=== PATIENT | male | born 1980 | race Caucasian/White ===

== ENCOUNTER 2018-03-08 20:27 | Emergency (ER) | payer BC ==
[2018-03-08] MEDS ORDERED: CEFTRIAXONE/SWI 1gm 1 GM/10 ML SYR ONE ×2 (21:02→21:50)
[2018-03-08] MEDS ORDERED: AZITHROMYCIN 500 MG/250 ML BAG ONE (21:02)
[2018-03-08] MEDS ORDERED: NA CHLORIDE 0.9% 2,000 ML ONE (21:02)
[2018-03-08 21:20] LABS: Absolute Lymphocytes (CBC) 1.1 K/uL (0.7-4.9); Absolute Monocytes 0.7 K/uL (0.1-1.3); Absolute Neutrophil 6.2 K/uL (1.8-8.0); Basophils % 0.3 % (0-1.3); Eosinophils % 2.1 % (0-4.4); Hematocrit 47.3 % (39.6-49.0); Lymphocytes % 12.9 % (15.3-44.8); MPV 8.7 fL (7.6-11.3); Monocytes % 8.4 % (3.3-12.3); RBC Red Blood Cell Count 5.15 M/uL (4.33-5.43)
[2018-03-08 21:21] LABS: Protime INR 1.25
[2018-03-08 21:31] LABS: ALT/SGPT 118 U/L (12-78); AST/SGOT 60 U/L (15-37); Albumin 3.3 g/dL (3.4-5.0); Alkaline Phosphatase 105 U/L (45-117); BUN Blood Urea Nitrogen 16 mg/dL (7-18); Bicarbonate 25 mmol/L (21-32); Bilirubin Direct 0.2 mg/dL (0-0.2); Bilirubin Total 0.6 mg/dL (0.2-1.0); Glucose Level 127 mg/dL (74-106); Lipase 115 U/L (73-393); NT PRO-BNP 26 pg/mL (<125); Potassium 3.6 mmol/L (3.5-5.1); Protein, Total 7.6 g/dL (6.4-8.2); Sodium Level 136 mmol/L (136-145); Troponin (Emerg Dept Use Only) < 0.02 ng/mL (0.0-0.045)
--- NOTE | 2018-03-08 21:40 | RAD REPORT ---
EXAM DESCRIPTION: RAD - Chest Pa And Lat (2 Views) - 03/08/2018 9:26 pm CLINICAL HISTORY: COUGH Chest pain. COMPARISON: No comparisons FINDINGS: Left parahilar lung opacities are present suspicious for pneumonia. The lungs are otherwis e clear. The heart is normal in size. No displaced fractures. IMPRESSION: Left parahilar pneumonia.
[2018-03-08 21:52] LABS: Urine Blood NEGATIVE (NEG); Urine Glucose NEGATIVE (NEG); Urine Protein 2+ (NEG)
--- NOTE | 2018-03-08 21:57 | EDPHYS ---
Physician Documentation [facility] Name: Jabier Schmidt Age: 37 yrs Sex: Male : 1980 Arrival Date: 03/08/2018 Time: 20:29 Bed 5 Private MD: Juan Antonio Harris T ED Physician Hiram Araujo HPI: 03/08 20:44 This 37 yrs old Male presents to ER via Ambulatory with complaints of Flu hermelinda Symptoms. 20:44 fever , malaise. The patient or guardian reports cough. Onset: The symptoms/episode hermelinda began/occurred 3 day(s) ago. Severity of symptoms: At their worst the symptoms were mild, in the emergency department the symptoms are unchanged. Onset: The symptoms/episode began/occurred just prior to arrival. Modifying factors: The symptoms are alleviated by nothing, the symptoms are aggravated by nothing. The patient reports fever, that was measured at 102 degrees Fahrenheit. Modifying factors: there are no obvious modifying factors. Historical: - Allergies: 20:34 Sulfa (Sulfonamide Antibiotics); aj 20:34 Bactrim; aj 20:34 IV contrast; aj - Home Meds: 20:34 Tamiflu Oral [Active]; Virtussin AC 10-100 mg/5 mL oral liqd 10 mL every 4 hours aj [Active]; Cefuroxime Oral [Active]; Lipitor Oral [Active]; - PMHx: 21:13 High Cholesterol; ak1 - PSHx: 21:13 Vasectomy; ak1 - Immunization history:: Adult Immunizations unknown. - Social history:: Smoking status: Patient/guardian denies using tobacco. - Ebola Screening: : Patient negative for fever greater than or equal to 101.5 degrees Fahrenheit, and additional compatible Ebola Virus Disease symptoms Patient denies exposure to infectious person Patient denies travel to an Ebola-affected area in the 21 days before illness onset No symptoms or risks identified at this time. - Family history:: not pertinent. ROS: 20:44 Eyes: Negative for injury, pain, redness, and discharge, ENT: Negative for injury, hermelinda pain, and discharge, Neck: Negative for injury, pain, and swelling, Cardiovascular: Negative for chest pain, palpitations, and edema, Abdomen/GI: Negative for abdominal pain, nausea, vomiting, diarrhea, and constipation, Back: Negative for injury and pain, : Negative for injury, bleeding, discharge, and swelling, MS/Extremity: Negative for injury and deformity, Skin: Negative for injury, rash, and discoloration, Neuro: Negative for headache, weakness, numbness, tingling, and seizure, Psych: Negative for depression, anxiety, suicide ideation, homicidal ideation, and hallucinations, Allergy/Immunology: Negative for hives, rash, and allergies, Endocrine: Negative for neck swelling, polydipsia, polyuria, polyphagia, and marked weight changes, Hematologic/Lymphatic: Negative for swollen nodes, abnormal bleeding, and unusual bruising. 20:44 Constitutional: Positive for fever, malaise. 20:44 Respiratory: Positive for cough. Exam: 20:44 Head/Face: Normocephalic, atraumatic. Eyes: Pupils equal round and reactive to light, hermelinda extra-ocular motions intact. Lids and lashes normal. Conjunctiva and sclera are non-icteric and not injected. Cornea within normal limits. Periorbital areas with no swelling, redness, or edema. ENT: Nares patent. No nasal discharge, no septal abnormalities noted. Tympanic membranes are normal and external auditory canals are clear. Oropharynx with no redness, swelling, or masses, exudates, or evidence of obstruction, uvula midline. Mucous membranes moist. Neck: Trachea midline, no thyromegaly or masses palpated, and no cervical lymphadenopathy. Supple, full range of motion without nuchal rigidity, or vertebral point tenderness. No Meningismus. Chest/axilla: Normal chest wall appearance and motion. Nontender with no deformity. No lesions are appreciated. Abdomen/GI: Soft, non-tender, with normal bowel sounds. No distension or tympany. No guarding or rebound. No evidence of tenderness throughout. Back: No spinal tenderness. No costovertebral tenderness. Full range of motion. Male : Normal genitalia with no discharge or lesions. Skin: Warm, dry with normal turgor. Normal color with no rashes, no lesions, and no evidence of cellulitis. MS/ Extremity: Pulses equal, no cyanosis. Neurovascular intact. Full, normal range of motion. Neuro: Awake and alert, GCS 15, oriented to person, place, time, and situation. Cranial nerves II-XII grossly intact. Motor strength 5/5 in all extremities. Sensory grossly intact. Cerebellar exam normal. Normal gait. Psych: Awake, alert, with orientation to person, place and time. Behavior, mood, and affect are within normal limits. 20:44 Constitutional: The patient appears febrile. 20:44 Cardiovascular: Rate: tachycardic, Rhythm: regular, Pulses: Pulses are 4+ in bilateral radial, brachial, femoral, popliteal, posterior tibial and and dorsalis pedis arteries.. Heart sounds: normal, Edema: is not appreciated, JVD: is not appreciated. Vital Signs: 20:34 BP 110 / 71; Pulse 111; Resp 24; Temp 99.7(O); Pulse Ox 98% on R/A; Weight 75.75 kg; aj Height 5 ft. 9 in. (175.26 cm); 21:09 BP 118 / 75; Pulse 107; Resp 22; Pulse Ox 98% on R/A; ak1 22:17 BP 115 / 80; Pulse 105; Resp 22; Pulse Ox 97% ; ea 22:57 Temp 99.5(O); ak1 22:58 BP 116 / 74; Pulse 97; Resp 20; Temp 99.5(O); Pulse Ox 97% on R/A; Pain 0/10; ak1 20:34 Body Mass Index 24.66 (75.75 kg, 175.26 cm) aj MDM: 20:36 Patient medically screened. [facility] 20:47 Data reviewed: vital signs, nurses notes, lab test result(s), EKG, radiologic studies, hermelinda plain films. 03/08 20:43 Order name: Basic Metabolic Panel [facility] 03/08 20:43 Order name: CBC with Diff; Complete Time: 21:55 [facility] 03/08 20:43 Order name: LFT's; Complete Time: 21:33 [facility] 03/08 20:43 Order name: Magnesium; Complete Time: 21:33 [facility] 03/08 20:43 Order name: NT PRO-BNP; Complete Time: 21:33 [facility] 03/08 20:43 Order name: PT-INR; Complete Time: 21:55 [facility] 03/08 20:43 Order name: Troponin (emerg Dept Use Only); Complete Time: 21:33 [facility] 03/08 20:43 Order name: Blood Culture Adult (2) [facility] 03/08 20:43 Order name: Procalcitonin; Complete Time: 22:27 [facility] 03/08 20:43 Order name: Lactate; Complete Time: 21:55 [facility] 03/08 20:43 Order name: Urine Culture [facility] 03/08 20:43 Order name: Flu; Complete Time: 21:33 [facility] 03/08 20:43 Order name: Lipase; Complete Time: 21:33 [facility] 03/08 20:44 Order name: Basic Metabolic Panel; Complete Time: 21:33 EDMS 03/08 20:43 Order name: EKG; Complete Time: 20:44 [facility] 03/08 20:43 Order name: Cardiac monitoring; Complete Time: 21:45 [facility] 03/08 20:43 Order name: EKG - Nurse/Tech; Complete Time: 21:45 [facility] 03/08 20:43 Order name: IV Saline Lock; Complete Time: 21:08 [facility] 03/08 20:43 Order name: Labs collected and sent; Complete Time: 21: [facility] 03/08 20:43 Order name: Chest Pa And Lat (2 Views) XRAY; Complete Time: 21:55 [facility] 03/08 21:33 Order name: Urine Dipstick--Ancillary (enter results); Complete Time: 21:55 03/08 21:57 Order name: INCENTIVE SPIROMETRY [facility] 03/08 20:43 Order name: O2 Per Protocol; Complete Time: 21: [facility] 03/08 20:43 Order name: O2 Sat Monitoring; Complete Time: 21: [facility] 03/08 20:43 Order name: Urine Dipstick-Ancillary (obtain specimen); Complete Time: 21:28 [facility] Administered Medications: 21:04 Drug: NS 0.9% 1000 ml Route: IV; Rate: 1 bolus; Site: right antecubital; [facility] 22:25 Follow up: Response: No adverse reaction; IV Status: Completed infusion; IV Intake: ea 1000ml 21:05 Drug: NS 0.9% 1000 ml Route: IV; Rate: 1 bolus; Site: right antecubital; [facility] 22:25 Follow up: Response: No adverse reaction; IV Status: Completed infusion; IV Intake: ea 1000ml 21:06 Drug: Rocephin - (cefTRIAXone) 1 grams Route: IVPB; Infused Over: 30 mins; Site: right ak1 antecubital; 21:28 Follow up: IV Status: Completed infusion; IV Intake: 10ml [facility] 21:07 Drug: Zithromax 500 mg Route: IVPB; Infused Over: 1 hrs; Site: right antecubital; ak1 22:30 Follow up: Response: No adverse reaction; IV Status: Completed infusion ea 22:20 Drug: Rocephin - (cefTRIAXone) 1 grams Route: IVPB; Infused Over: 30 mins; Site: right ea antecubital; 22:41 Follow up: IV Status: Completed infusion; IV Intake: 10ml ak1 22:28 Drug: Zofran 4 mg Route: IVP; Site: right antecubital; ea 22:40 Follow up: Response: No adverse reaction ak1 22:29 Drug: NS 0.9% 1000 ml Route: IV; Rate: 1 bolus; Site: right antecubital; ea 23:50 Follow up: IV Status: Completed infusion; IV Intake: 1000ml ak1 22:41 Drug: Tylenol 1000 mg Route: PO; ak1 23:02 Follow up: Response: No adverse reaction ak1 Disposition: 03/08/18 21:56 Discharged to Home. Impression: Fever, unspecified, Malaise and fatigue, Acute upper respiratory infection, unspecified, Pneumonia due to other specified bacteria - left perihilar. - Condition is Stable. - Discharge Instructions: Fever, Adult, Community-Acquired Pneumonia, Adult, Upper Respiratory Infection, Adult, Weakness, Upper Respiratory Infection, Adult, Lmss-[id number], Community-Acquired Pneumonia, Adult, Mcln-eu-Ffle, Weakness, Nwje-[id number], Cough, Adult. - Prescriptions for Zithromax 500 mg Oral Tablet - take 1 tablet by ORAL route once daily for 5 days; 5 tablet. Ceftin 500 mg Oral Tablet - take 1 tablet by ORAL route every 12 hours for 10 days; 20 tablet. Albuterol Sulfate 90 mcg/actuation - inhale 1-2 puff by INHALATION route every 4-6 hours; 1 Inhaler. Zofran 4 mg Oral Tablet - take 1 tablet by ORAL route every 12 hours As needed; 20 tablet. - Medication Reconciliation Form, Thank You Letter, Antibiotic Education, Prescription Opioid Use, Work release form form. - Follow up: Juan Antonio Harris; When: 2 - 3 days; Reason: Recheck today's complaints, Continuance of care, Re-evaluation by your physician. - Problem is new. - Symptoms have improved. Signatures: Dispatcher [employer] Alicja Valencia RN RN aj Anderson, Corey, MD MD cha Krenek Jessica, RN RN ak1 Ana Luisa Urrutia RN RN ea Corrections: (The following items were deleted from the chart) 21:13 20:34 PSHx: None; aj ak1 23:50 21:56 03/08/2018 21:56 Discharged to Home. Impression: Fever, unspecified; Malaise and ak1 fatigue; Acute upper respiratory infection, unspecified; Pneumonia due to other specified bacteria - left perihilar. Condition is Stable. Discharge Instructions: Fever, Adult, Upper Respiratory Infection, Adult, Weakness, Upper Respiratory Infection, Adult, Ibtp-[id number], Weakness, Sqjg-gg-Syyq, Cough, Adult, Community-Acquired Pneumonia, Adult, Community-Acquired Pneumonia, Adult, Vdek-[id number]. Prescriptions for Zithromax 500 mg Oral Tablet - take 1 tablet by ORAL route once daily for 5 days; 5 tablet, Ceftin 500 mg Oral Tablet - take 1 tablet by ORAL route every 12 hours for 10 days; 20 tablet. and Forms are Medication Reconciliation Form, Thank You Letter, Antibiotic Education, Prescription Opioid Use. Follow up: Juan Antonio Harris; When: 2 - 3 days; Reason: Recheck today's complaints, Continuance of care, Re-evaluation by your physician. Problem is new. Symptoms have improved. hermelinda
--- NOTE | 2018-03-08 21:57 | ER ---
Nurse's Notes [facility] Name: Jabier Schmidt Age: 37 yrs Sex: Male : 1980 Arrival Date: 03/08/2018 Time: 20:29 Bed 5 Private MD: Juan Antonio Harris T Diagnosis: Fever, unspecified;Malaise and fatigue;Acute upper respiratory infection, unspecified;Pneumonia due to other specified bacteria-left perihilar Presentation: 03/08 20:32 Presenting complaint: Patient states: Flu like symptoms for 1 week. Started tamiflu on aj Monday. Transition of care: patient was not received from another setting of care. Onset of symptoms was February 28, 2018. Risk Assessment: Do you want to hurt yourself or someone else? Patient reports no desire to harm self or others. Initial Sepsis Screen: Does the patient meet any 2 criteria? No. Patient's initial sepsis screen is negative. Does the patient have a suspected source of infection? No. Patient's initial sepsis screen is negative. Care prior to arrival: None. 20:32 Method Of Arrival: Ambulatory 20:32 Acuity: SINAN 3 ak1 Triage Assessment: 20:34 General: Appears in no apparent distress. uncomfortable, Behavior is calm, cooperative, aj appropriate for age. Pain: Denies pain. EENT: Reports nasal congestion nasal discharge. Neuro: Level of Consciousness is awake, alert, obeys commands, Oriented to person, place, time, situation, Appropriate for age. Respiratory: Reports cough that is Airway is patent Respiratory effort is even, unlabored, Respiratory pattern is hyperventilation. Derm: Skin is intact, is healthy with good turgor, Skin is pink, warm \T\ dry. normal. Historical: - Allergies: 20:34 Sulfa (Sulfonamide Antibiotics); aj 20:34 Bactrim; aj 20:34 IV contrast; aj - Home Meds: 20:34 Tamiflu Oral [Active]; Virtussin AC 10-100 mg/5 mL oral liqd 10 mL every 4 hours aj [Active]; Cefuroxime Oral [Active]; Lipitor Oral [Active]; - PMHx: 21:13 High Cholesterol; ak1 - PSHx: 21:13 Vasectomy; ak1 - Immunization history:: Adult Immunizations unknown. - Social history:: Smoking status: Patient/guardian denies using tobacco. - Ebola Screening: : Patient negative for fever greater than or equal to 101.5 degrees Fahrenheit, and additional compatible Ebola Virus Disease symptoms Patient denies exposure to infectious person Patient denies travel to an Ebola-affected area in the 21 days before illness onset No symptoms or risks identified at this time. - Family history:: not pertinent. Screenin:09 Abuse screen: Denies threats or abuse. Denies injuries from another. Nutritional ak1 screening: No deficits noted. Tuberculosis screening: No symptoms or risk factors identified. Fall Risk None identified. Assessment: 21:09 General: Appears uncomfortable, ill, Behavior is cooperative, fussy. Pain: Complains of ak1 pain in body aches. Neuro: Level of Consciousness is awake, alert, obeys commands, Oriented to person, place, time, situation, [employer] are equal bilaterally Moves all extremities. Gait is steady, Speech is normal. Cardiovascular: Rhythm is sinus tachycardia. Respiratory: Reports shortness of breath cough that is Airway is patent Breath sounds are diminished. GI: No signs and/or symptoms were reported involving the gastrointestinal system. : No signs and/or symptoms were reported regarding the genitourinary system. EENT: Reports nasal congestion. Derm: Reports fever. Musculoskeletal: Reports body aches. 21:31 Reassessment: Patient appears in no apparent distress at this time. No changes from ak1 previously documented assessment. Patient and/or family updated on plan of care and expected duration. Pain level reassessed. Patient is alert, oriented x 3, equal unlabored respirations, skin warm/dry/pink. pt returned from XRay, fluids and antibiotics restarted. will continue to monitor. 22:43 Reassessment: Patient appears in no apparent distress at this time. No changes from ak1 previously documented assessment. Patient and/or family updated on plan of care and expected duration. Pain level reassessed. Patient is alert, oriented x 3, equal unlabored respirations, skin warm/dry/pink. pt and educated on IS usage, antipyretic usage. pt given work note. pt and family informed of wait for discharge due to finishing IV fluids. Vital Signs: 20:34 BP 110 / 71; Pulse 111; Resp 24; Temp 99.7(O); Pulse Ox 98% on R/A; Weight 75.75 kg; aj Height 5 ft. 9 in. (175.26 cm); 21:09 BP 118 / 75; Pulse 107; Resp 22; Pulse Ox 98% on R/A; ak1 22:17 BP 115 / 80; Pulse 105; Resp 22; Pulse Ox 97% ; ea 22:57 Temp 99.5(O); ak1 22:58 BP 116 / 74; Pulse 97; Resp 20; Temp 99.5(O); Pulse Ox 97% on R/A; Pain 0/10; ak1 20:34 Body Mass Index 24.66 (75.75 kg, 175.26 cm) ED Course: 20:29 Patient arrived in ED. am2 20:29 Juan Antonio Harris MD is Private Physician. am2 20:33 Triage completed. aj 20:34 Arm band placed on right wrist. Patient placed in an exam room. 20:36 Jessica Dunn RN is Primary Nurse. ak1 20:36 Hiram Araujo MD is Attending Physician. [facility] 21:09 Patient has correct armband on for positive identification. Bed in low position. Call ak1 light in reach. Side rails up X2. Adult w/ patient. stock receiver on. Pulse ox on. NIBP on. 21:13 Initial lab(s) drawn, by ED staff, sent to lab. Flu and/or RSV swab sent to lab. ak1 Inserted saline lock: 20 gauge in right antecubital area, using aseptic technique. ,using aseptic technique. placed by Hina Herzog RN Blood collected. 21:32 Chest Pa And Lat (2 Views) XRAY In Process Unspecified. EDMS 21:56 Juan Antonio Harris MD is Referral Physician. [facility] 22:24 INCENTIVE SPIROMETRY Sent. ak1 22:53 No provider procedures requiring assistance completed. ak1 23:49 IV discontinued, intact, bleeding controlled, No redness/swelling at site. Pressure ak1 dressing applied. Administered Medications: 21:04 Drug: NS 0.9% 1000 ml Route: IV; Rate: 1 bolus; Site: right antecubital; ak1 22:25 Follow up: Response: No adverse reaction; IV Status: Completed infusion; IV Intake: ea 1000ml 21:05 Drug: NS 0.9% 1000 ml Route: IV; Rate: 1 bolus; Site: right antecubital; ak1 22:25 Follow up: Response: No adverse reaction; IV Status: Completed infusion; IV Intake: ea 1000ml 21:06 Drug: Rocephin - (cefTRIAXone) 1 grams Route: IVPB; Infused Over: 30 mins; Site: right ak1 antecubital; 21:28 Follow up: IV Status: Completed infusion; IV Intake: 10ml ak1 21:07 Drug: Zithromax 500 mg Route: IVPB; Infused Over: 1 hrs; Site: right antecubital; ak1 22:30 Follow up: Response: No adverse reaction; IV Status: Completed infusion ea 22:20 Drug: Rocephin - (cefTRIAXone) 1 grams Route: IVPB; Infused Over: 30 mins; Site: right ea antecubital; 22:41 Follow up: IV Status: Completed infusion; IV Intake: 10ml ak1 22:28 Drug: Zofran 4 mg Route: IVP; Site: right antecubital; ea 22:40 Follow up: Response: No adverse reaction ak1 22:29 Drug: NS 0.9% 1000 ml Route: IV; Rate: 1 bolus; Site: right antecubital; ea 23:50 Follow up: IV Status: Completed infusion; IV Intake: 1000ml ak1 22:41 Drug: Tylenol 1000 mg Route: PO; ak1 23:02 Follow up: Response: No adverse reaction ak1 Intake: 21:28 IV: 10ml; Total: 10ml. ak1 22:25 IV: 1000ml; Total: 1010ml. ea 22:25 IV: 1000ml; Total: 2010ml. ea 22:41 IV: 10ml; Total: 2020ml. ak1 23:50 IV: 1000ml; Total: 3020ml. ak1 Outcome: 21:56 Discharge ordered by . hermelinda 22:53 Condition: improved ak1 22:53 Discharge instructions given to patient, significant other, Instructed on discharge instructions, no drinking with medication, no driving heavy equipment, medication usage, Demonstrated understanding of instructions, follow-up care, medications, Prescriptions given X 4. 23:49 Discharged to home ambulatory, with significant other. ak1 23:50 Patient left the ED. ak1 Signatures: Dispatcher [employer] EDAlicja Moreno RN RN aj Anderson, Corey, MD MD cha Krenek, Amber, RN RN ak1 Cisneros, Alicja am2 Urrutia, Ana Luisa, RN RN ea Corrections: (The following items were deleted from the chart) : 20:34 PSHx: None; luda womack 20:32 Acuity: SINAN 4 luda womack
[2018-03-08] MEDS ORDERED: NA CHLORIDE 0.9% 1,000 ML ONE (22:36)
[2018-03-08] MEDS ORDERED: ACETAMINOPHEN 500 MG TAB ONE (22:36)
[2018-03-08] MEDS ORDERED: ONDANSETRON 4 MG/2 ML VIAL ONE (22:36)
--- NOTE | 2018-03-09 11:53 | EKG ---
Test Date: 2018-03-08 Test Time: 21:31:43 Windshield Installer: ANDREA MEASUREMENT RESULTS: Intervals: Rate: 108 FL: 152 QRSD: 96 QT: 322 QTc: 431 [place]: P: 53 FL: 152 QRS: 70 T: 41 INTERPRETIVE STATEMENTS: Sinus tachycardia Otherwise normal ECG No previous ECG available for comparison Electronically Signed On 03-09-18 11:51:51 ASSOCIATE PROFESSOR OF [employer]IMINAL JUSTICE by Sourav Jimenez
== END 2018-03-08 23:50 | disposition home or self-care (01) ==
LOC: ER 20:27
DX: J15.8 Pneumonia due to other specified bacteria (principal); J06.9 Acute upper respiratory infection, unspecified; Z88.1 Allergy status to other antibiotic agents; Z88.2 Allergy status to sulfonamides; E78.00 Pure hypercholesterolemia, unspecified
CPT/HCPCS: 36415; 71046; 80048; 80076; 81003; 83605; 83690; 83735; 83880; 84145; 84484; 85025; 85610; 87040; 87086; 87088; 87804; 93005; 96361; 96365; 96375; 99284; J0456; J0696; J2405; J7030

== ENCOUNTER 2018-03-09 09:57 | Emergency (ER) | payer BC ==
--- NOTE | 2018-03-09 11:18 | ER ---
Nurse's Notes [facility] Name: Jabier Schmidt Age: 37 yrs Sex: Male : 1980 Arrival Date: 03/09/2018 Time: 10:00 Bed 8 Private MD: Juan Antonio Harris T Diagnosis: Urticaria, unspecified Presentation: 03/09 10:13 Presenting complaint: Patient states: was seen here last night and dx with pneumonia sv and given meds here, went home for about an hr and started having hives. Pt was given Rocephin and Zithromax here in the ER. Transition of care: patient was not received from another setting of care. Onset: The symptoms/episode began/occurred suddenly, yesterday. Anaphylaxis evaluation, no signs or symptoms of anaphylaxis were noted. Onset of symptoms was March 08, 2018. Care prior to arrival: Medication(s) given: Benadryl and Tylenol taken today at 0830. 10:13 Method Of Arrival: Ambulatory sv 10:13 Acuity: SINAN 4 sv 11:32 Risk Assessment: Do you want to hurt yourself or someone else? Patient reports no jl7 desire to harm self or others. Initial Sepsis Screen: Does the patient meet any 2 criteria? No. Patient's initial sepsis screen is negative. Does the patient have a suspected source of infection? No. Patient's initial sepsis screen is negative. Triage Assessment: 10:16 General: Appears in no apparent distress. comfortable, Behavior is calm, cooperative, sv appropriate for age. Pain: Denies pain. Neuro: Level of Consciousness is awake, alert, obeys commands, Oriented to person, place, time, situation, Moves all extremities. Full function Gait is steady, Speech is normal. Respiratory: Airway is patent Respiratory effort is even, unlabored, Respiratory pattern is regular, symmetrical. Historical: - Allergies: 10:16 Bactrim; sv 10:16 IV contrast; sv 10:16 Sulfa (Sulfonamide Antibiotics); sv - PMHx: 10:16 High Cholesterol; sv - PSHx: 10:16 Vasectomy; sv - Immunization history:: Adult Immunizations unknown. - Social history:: Smoking status: unknown. - Ebola Screening: : No symptoms or risks identified at this time. Screenin:29 Abuse screen: Denies threats or abuse. Denies injuries from another. Nutritional jl7 screening: No deficits noted. Tuberculosis screening: No symptoms or risk factors identified. Fall Risk None identified. Assessment: 11:29 General: Appears in no apparent distress. uncomfortable, Behavior is calm, cooperative, jl7 appropriate for age. Pain: Denies pain. Neuro: Level of Consciousness is awake, alert, obeys commands, Oriented to person, place, time, situation. Cardiovascular: Patient's skin is warm and dry. Respiratory: Airway is patent Respiratory effort is even, unlabored, Respiratory pattern is regular, symmetrical, Breath sounds are clear bilaterally. Derm: Rash noted that is urticaria. Vital Signs: 10:16 BP 107 / 69; Pulse 81; Resp 16; Temp 98.1; Pulse Ox 96% ; Weight 75.75 kg; Height 5 ft. sv 9 in. (175.26 cm); Pain 0/10; 10:16 Body Mass Index 24.66 (75.75 kg, 175.26 cm) sv ED Course: 10:00 Patient arrived in ED. as 10:00 Juan Antonio Harris MD is Private Physician. as 10:15 Triage completed. sv 10:16 Arm band placed on. sv 10:47 Jojo Hunter RN is Primary Nurse. jl7 10:49 Ray Loaiza NP is PHCP. pm1 10:49 Ganesh Ward MD is Attending Physician. pm1 11:29 Patient has correct armband on for positive identification. Bed in low position. Call jl7 light in reach. Side rails up X 1. 11:29 No provider procedures requiring assistance completed. Patient did not have IV access jl7 during this emergency room visit. Administered Medications: 11:18 Drug: predniSONE 60 mg Route: PO; jl7 11:28 Follow up: Response: Medication administered at discharge. jl7 Outcome: 11:18 Discharge ordered by . pm1 11:29 Discharged to home ambulatory. jl7 11:29 Discharge instructions given to patient, family, Instructed on discharge instructions, follow up and referral plans. medication usage, Demonstrated understanding of instructions, follow-up care, medications, Prescriptions given X 1. 11:31 Condition: stable jl7 11:32 Patient left the ED. jl7 Signatures: Nova Rodriguez RN RN sv Martinez, Amelia as Marinas, Patrick, NP DIGITAL ASSISTANT pm1 Jojo Hunter RN RN jl7 Corrections: (The following items were deleted from the chart) 10:17 10:16 Pulse 81bpm; Resp 16bpm; Temp 98.1F; 75.75 kg; Height 5 ft. 9 in.; BMI: 24.6; sv Pain 0/10; sv
--- NOTE | 2018-03-09 11:18 | EDPHYS ---
Physician Documentation [facility] Name: Jabier Schmidt Age: 37 yrs Sex: Male : 1980 Arrival Date: 03/09/2018 Time: 10:00 Bed 8 Private MD: Juan Antonio Harris T ED Physician Ganesh Ward HPI: 03/09 11:15 This 37 yrs old Male presents to ER via Ambulatory with complaints of Hives. pm1 11:15 The patient's rash thought to be caused by medication. The rash is located on the body pm1 diffusely. The rash can be described as urticarial. Onset: The symptoms/episode began/occurred last night, After infusion of IV antibiotics last night had a rash to arm. Rash presented to left thigh last night just as he was leaving the ER. He did not want to come back to the ER and went home. This morning the rash was still present and he took some Benadryl. Improvement in rash but still present. Patient has taken azithromycin in the past multiple times. he has not had Rocephin before and his daughters are allergic to cephalosporins. He did not fill last night's prescriptions due to concern of allergic reaction. Historical: - Allergies: 10:16 Bactrim; sv 10:16 IV contrast; sv 10:16 Sulfa (Sulfonamide Antibiotics); sv - PMHx: 10:16 High Cholesterol; sv - PSHx: 10:16 Vasectomy; sv - Immunization history:: Adult Immunizations unknown. - Social history:: Smoking status: unknown. - Ebola Screening: : No symptoms or risks identified at this time. ROS: 11:15 Constitutional: Negative for fever, chills, and weight loss, Eyes: Negative for injury, pm1 pain, redness, and discharge, ENT: Negative for injury, pain, and discharge, Neck: Negative for injury, pain, and swelling, Cardiovascular: Negative for chest pain, palpitations, and edema, Respiratory: Negative for shortness of breath, cough, wheezing, and pleuritic chest pain, Abdomen/GI: Negative for abdominal pain, nausea, vomiting, diarrhea, and constipation, Back: Negative for injury and pain, : Negative for injury, bleeding, discharge, and swelling, MS/Extremity: Negative for injury and deformity. 11:15 Neuro: Negative for headache, weakness, numbness, tingling, and seizure. 11:15 Skin: Positive for rash, of the face and left leg. Exam: 11:15 Constitutional: This is a well developed, well nourished patient who is awake, alert, pm1 and in no acute distress. Head/Face: Normocephalic, atraumatic. Eyes: Pupils equal round and reactive to light, extra-ocular motions intact. Lids and lashes normal. Conjunctiva and sclera are non-icteric and not injected. Cornea within normal limits. Periorbital areas with no swelling, redness, or edema. ENT: Nares patent. No nasal discharge, no septal abnormalities noted. Tympanic membranes are normal and external auditory canals are clear. Oropharynx with no redness, swelling, or masses, exudates, or evidence of obstruction, uvula midline. Mucous membranes moist. Neck: Trachea midline, no thyromegaly or masses palpated, and no cervical lymphadenopathy. Supple, full range of motion without nuchal rigidity, or vertebral point tenderness. No Meningismus. Chest/axilla: Normal chest wall appearance and motion. Nontender with no deformity. No lesions are appreciated. Cardiovascular: Regular rate and rhythm with a normal S1 and S2. No gallops, murmurs, or rubs. Normal PMI, no JVD. No pulse deficits. Respiratory: Lungs have equal breath sounds bilaterally, clear to auscultation and percussion. No rales, rhonchi or wheezes noted. No increased work of breathing, no retractions or nasal flaring. Abdomen/GI: Soft, non-tender, with normal bowel sounds. No distension or tympany. No guarding or rebound. No evidence of tenderness throughout. Back: No spinal tenderness. No costovertebral tenderness. Full range of motion. 11:15 Skin: Appearance: normal except for affected area, consistent with urticaria, on the left quadriceps and face. Vital Signs: 10:16 BP 107 / 69; Pulse 81; Resp 16; Temp 98.1; Pulse Ox 96% ; Weight 75.75 kg; Height 5 ft. sv 9 in. (175.26 cm); Pain 0/10; 10:16 Body Mass Index 24.66 (75.75 kg, 175.26 cm) sv MDM: 10:58 Patient medically screened. pm1 11:15 Data reviewed: vital signs. Data interpreted: Pulse oximetry: on room air is 96 %. pm1 Interpretation: normal. Counseling: I had a detailed discussion with the patient and/or guardian regarding: the historical points, exam findings, and any diagnostic results supporting the discharge/admit diagnosis, the need for outpatient follow up, to return to the emergency department if symptoms worsen or persist or if there are any questions or concerns that arise at home. Administered Medications: 11:18 Drug: predniSONE 60 mg Route: PO; 7 11:28 Follow up: Response: Medication administered at discharge. [facility] Disposition: 16:47 Co-signature as Attending Physician, Ganesh Ward MD. ma2 Disposition: 03/09/18 11:18 Discharged to Home. Impression: Urticaria, unspecified. - Condition is Stable. - Discharge Instructions: Hives. - Prescriptions for Medrol (Syed) 4 mg Oral Tablets, Dose Pack - take 1 tablet by ORAL route as directed - follow package instructions; 1 packet. - Medication Reconciliation Form, Thank You Letter, Antibiotic Education, Prescription Opioid Use form. - Follow up: Emergency Department; When: As needed; Reason: Worsening of condition. Follow up: Private Physician; When: 2 - 3 days; Reason: Recheck today's complaints, Continuance of care, Re-evaluation by your physician. - Problem is new. - Symptoms have improved. Signatures: Nova Rodriguez RN RN Ray Loaiza NP FAMILY LIVING EDUCATOR pm1 Jojo Hunter RN RN jl7 Ganesh Ward MD MD ak2 Corrections: (The following items were deleted from the chart) 11:32 11:18 03/09/2018 11:18 Discharged to Home. Impression: Urticaria, unspecified. jl Condition is Stable. Forms are Medication Reconciliation Form, Thank You Letter, Antibiotic Education, Prescription Opioid Use. Follow up: Emergency Department; When: As needed; Reason: Worsening of condition. Follow up: Private Physician; When: 2 - 3 days; Reason: Recheck today's complaints, Continuance of care, Re-evaluation by your physician. Problem is new. Symptoms have improved. pm1
[2018-03-09] MEDS ORDERED: predniSONE 20 MG TAB ONE (11:27)
== END 2018-03-09 11:32 | disposition home or self-care (01) ==
LOC: ER 09:57
DX: L50.9 Urticaria, unspecified (principal); Z88.1 Allergy status to other antibiotic agents; Z88.2 Allergy status to sulfonamides; Z91.041 Radiographic dye allergy status
CPT/HCPCS: 99283; J7512